=== PATIENT | male | born 1995 | race Caucasian/White ===

== ENCOUNTER 2017-05-29 19:09 | Observation (INO) | payer OTHER ==
[~2017-05-29] VITALS: Ht 188 cm; Wt 59.0 kg
[~2017-05-29 19:09] MED LIST: AZIT200SU PO
[2017-05-29] MEDS ORDERED: FLUO10 (19:52)
[2017-05-29] MEDS ORDERED: QUET25 (19:52)
[2017-05-29 20:43] LABS: BASOPHILS ABSOLUTE AUTO 0.06 K/mm3 (0.00-0.23); BASOPHILS PERCENT AUTO 1 % (0-2); EOSINOPHILS ABSOLUTE AUTO 0.45 K/mm3 (0.00-0.68); EOSINOPHILS PERCENT AUTO 6 % (0-6); Hematocrit 44.6 % (37.0-53.0); Hemoglobin 15.4 g/dL (13.5-17.5); IMMATURE GRAN ABSOLUTE AUTO 0.01 K/mm3 (0.00-0.10); IMMATURE GRAN PERCENT AUTO 0 % (0-1); LYMPHOCYTES PERCENT AUTO 32 % (21-46); MONOCYTES ABSOLUTE AUTO 0.44 K/mm3 (0.16-1.47); MONOCYTES PERCENT AUTO 6 % (4-13); Mean Corpuscular HGB 29.8 pg (26.0-34.0); Mean Corpuscular HGB Conc 34.5 g/dL (31.5-36.5); Mean Corpuscular Volume 86 fL (80-100); NEUTROPHILS ABSOLUTE AUTO 4.39 K/mm3 (1.96-9.15); NEUTROPHILS PERCENT AUTO 56 % (41-73); Platelet Count 189 K/mm3 (150-400); RDW Standard Deviation 38.3 fL (35.1-46.3); Red Blood Cell Count 5.17 M/mm3 (4.30-5.90); White Blood Cell Count 7.85 K/mm3 (4.00-11.30)
[2017-05-29 21:01] LABS: Alanine Aminotransfer (ALT/SGP 16 U/L (12-78); Albumin/Globulin Ratio 1.2 (0.8-1.8); Alk Phos 76 U/L (50-136); Anion Gap 8 mmol/L (6-16); Aspartate Aminotrans (AST/SGOT 9 U/L (12-37); Bilirubin, Total 0.8 mg/dL (0.1-1.0); Blood Urea Nitrogen 20 mg/dL (8-24); Bun/Creatinine Ratio 26.1 (12.0-20.0); CO2, Blood 25 mmol/L (21-32); Calcium, Blood 8.4 mg/dL (8.5-10.1); Chloride, Blood 106 mmol/L (98-108); Creatinine, Blood 0.77 mg/dL (0.60-1.20); Ethanol (Alcohol), Blood, Med <3 mg/dL; Globulin, Blood 3.2 g/dL (2.2-4.0); Glomerular Filtration Rate >60 (60-); Glucose, Blood 101 mg/dL (70-99); Potassium, Blood 3.8 mmol/L (3.5-5.5); Salicylate <1.7 mg/dL (2.8-20.0); Sodium, Blood 139 mmol/L (136-145); Total Protein, Blood 7.2 g/dL (6.4-8.2)
[2017-05-29 21:05] LABS: Acetaminophen, Random < 2.0 ug/mL (10.0-30.0)
[2017-05-29 21:52] LABS: Source, Urine Voided
[2017-05-29 22:02] LABS: Bilirubin, Urine Neg (Neg); Blood, Urine Neg (Neg); Glucose Qualitative, Urine Neg (Neg); Ketones, Urine Neg (Neg); Leukocyte Esterase, Urine Neg (Neg); Nitrite, Urine Neg (Neg); Protein, Urine Neg (Neg); Specific Gravity, Urine 1.015 (1.003-1.022); Urobilinogen, Urine NORM (Normal)
[2017-05-29 22:06] LABS: Appearance, Urine Clear (Clear); Color, Urine Yellow (P-Yellow)
[2017-05-29 22:09] LABS: U Amphetamine Screen Not Detected; U Barbituate Screen Not Detected; U Benzodiazapine Screen Not Detected; U Buprenorphine Screen Not Detected; U Cannabinoids Screen Not Detected; U Cocaine Screen Not Detected; U Methadone Screen Not Detected; U Methamphetamine Screen Not Detected; U Opiates Screen Not Detected; U Oxycodone Screen Not Detected; U Phencyclidine Screen Not Detected; U Propoxyphene Screen Not Detected
== END 2017-05-31 14:30 ==
LOC: ER 19:09 → EOR 19:10
PROVIDERS: Emergency Medicine
DX: T14.91XA Suicide attempt, initial encounter (principal); X83.8XXA Intentional self-harm by other specified means, initial encounter; F20.9 Schizophrenia, unspecified; F32.9 Major depressive disorder, single episode, unspecified; Z88.1 Allergy status to other antibiotic agents; Z79.899 Other long term (current) drug therapy
CPT/HCPCS: 36415; 80053; 81003; 84443; 85025; 99285; G0378; G0480

== ENCOUNTER → 2017-06-23 | Outpatient (CLI) | payer OTHER ==
[~2017-06-23] MED LIST changes: +FLUO10; +QUET25
[2017-06-23 13:26] LABS: BASOPHILS ABSOLUTE AUTO 0.06 K/mm3 (0.00-0.23); BASOPHILS PERCENT AUTO 1 % (0-2); EOSINOPHILS ABSOLUTE AUTO 0.62 K/mm3 (0.00-0.68); EOSINOPHILS PERCENT AUTO 7 % (0-6); Hematocrit 47.3 % (37.0-53.0); Hemoglobin 16.2 g/dL (13.5-17.5); IMMATURE GRAN ABSOLUTE AUTO 0.04 K/mm3 (0.00-0.10); IMMATURE GRAN PERCENT AUTO 1 % (0-1); LYMPHOCYTES ABSOLUTE AUTO 1.84 K/mm3 (0.84-5.20); LYMPHOCYTES PERCENT AUTO 21 % (21-46); MONOCYTES ABSOLUTE AUTO 0.65 K/mm3 (0.16-1.47); MONOCYTES PERCENT AUTO 8 % (4-13); Mean Corpuscular HGB 30.5 pg (26.0-34.0); Mean Corpuscular HGB Conc 34.2 g/dL (31.5-36.5); Mean Corpuscular Volume 89 fL (80-100); Mean Platelet Volume 10.1 fL (9.1-12.4); NEUTROPHILS ABSOLUTE AUTO 5.37 K/mm3 (1.96-9.15); NEUTROPHILS PERCENT AUTO 63 % (41-73); Platelet Count 240 K/mm3 (150-400); RDW Coefficient Variation 12.8 % (11.7-14.2); RDW Standard Deviation 41.3 fL (35.1-46.3); Red Blood Cell Count 5.32 M/mm3 (4.30-5.90); White Blood Cell Count 8.58 K/mm3 (4.00-11.30)
[2017-06-23 13:49] LABS: Alanine Aminotransfer (ALT/SGP 34 U/L (12-78); Albumin, Blood 3.9 g/dL (3.4-5.0); Alk Phos 82 U/L (40-126); Anion Gap 5 mmol/L (6-16); Aspartate Aminotrans (AST/SGOT 17 U/L (12-37); Bilirubin, Total 0.7 mg/dL (0.1-1.0); Blood Urea Nitrogen 11 mg/dL (8-24); Bun/Creatinine Ratio 12.9 (12.0-20.0); CO2, Blood 32 mmol/L (21-32); Calcium, Blood 9.5 mg/dL (8.5-10.1); Chloride, Blood 103 mmol/L (98-108); Creatinine, Blood 0.85 mg/dL (0.60-1.20); Globulin, Blood 3.8 g/dL (2.2-4.0); Glomerular Filtration Rate >60 (60-); Glucose, Blood 92 mg/dL (70-99); Potassium, Blood 3.9 mmol/L (3.5-5.5); Sodium, Blood 140 mmol/L (136-145); Thyroid Stimulating Hormone 1.368 uIU/mL (0.360-4.800); Total Protein, Blood 7.7 g/dL (6.4-8.2)
== END | disposition home or self-care (01) ==
LOC: LAB 13:23
PROVIDERS: Physician Assistant Medical
DX: R53.83 Other fatigue (principal)
CPT/HCPCS: 80053; 84443; 85025

== ENCOUNTER → 2019-05-26 | Outpatient (CLI) | payer OTHER ==
[2019-05-26 18:47] LABS: U Amphetamine Screen Not Detected; U Barbituate Screen Not Detected; U Benzodiazapine Screen Not Detected; U Buprenorphine Screen Not Detected; U Cannabinoids Screen Not Detected; U Cocaine Screen Not Detected; U Methadone Screen Not Detected; U Methamphetamine Screen Not Detected; U Opiates Screen Not Detected; U Oxycodone Screen Not Detected; U Phencyclidine Screen Not Detected; U Propoxyphene Screen Not Detected
== END | disposition home or self-care (01) ==
LOC: LAB SHORT 17:13 → LAB 17:13
PROVIDERS: Registered Nurse Psychiatric/Mental Health
DX: Z51.81 Encounter for therapeutic drug level monitoring (principal); Z79.899 Other long term (current) drug therapy

== ENCOUNTER → 2019-11-27 | Outpatient (CLI) | payer OTHER ==
[2019-11-27 10:18] LABS: BASOPHILS ABSOLUTE AUTO 0.05 K/mm3 (0.00-0.23); BASOPHILS PERCENT AUTO 1 % (0-2); EOSINOPHILS ABSOLUTE AUTO 0.05 K/mm3 (0.00-0.68); EOSINOPHILS PERCENT AUTO 1 % (0-6); Hematocrit 49.5 % (37.0-53.0); Hemoglobin 16.9 g/dL (13.5-17.5); IMMATURE GRAN ABSOLUTE AUTO 0.01 K/mm3 (0.00-0.10); IMMATURE GRAN PERCENT AUTO 0 % (0-1); LYMPHOCYTES ABSOLUTE AUTO 1.35 K/mm3 (0.84-5.20); LYMPHOCYTES PERCENT AUTO 34 % (21-46); MONOCYTES ABSOLUTE AUTO 0.32 K/mm3 (0.16-1.47); MONOCYTES PERCENT AUTO 8 % (4-13); Mean Corpuscular HGB 29.5 pg (26.0-34.0); Mean Corpuscular HGB Conc 34.1 g/dL (31.5-36.5); Mean Corpuscular Volume 87 fL (80-100); Mean Platelet Volume 10.6 fL (9.1-12.4); NEUTROPHILS ABSOLUTE AUTO 2.18 K/mm3 (1.96-9.15); NEUTROPHILS PERCENT AUTO 55 % (41-73); Platelet Count 242 K/mm3 (150-400); RDW Coefficient Variation 12.5 % (11.7-14.2); RDW Standard Deviation 39.6 fL (35.1-46.3); Red Blood Cell Count 5.72 M/mm3 (4.30-5.90); White Blood Cell Count 3.96 K/mm3 (4.00-11.30)
[2019-11-27 10:41] LABS: Alanine Aminotransfer (ALT/SGP 14 U/L (12-78); Albumin, Blood 4.9 g/dL (3.4-5.0); Albumin/Globulin Ratio 1.5 (0.8-1.8); Alk Phos 83 U/L (40-126); Anion Gap 8 mmol/L (6-16); Aspartate Aminotrans (AST/SGOT 11 U/L (12-37); Bilirubin, Total 1.6 mg/dL (0.1-1.0); Blood Urea Nitrogen 19 mg/dL (8-24); Bun/Creatinine Ratio 16.1 (12.0-20.0); CO2, Blood 29 mmol/L (21-32); Calcium, Blood 9.3 mg/dL (8.5-10.1); Chloride, Blood 100 mmol/L (98-108); Creatinine, Blood 1.18 mg/dL (0.60-1.20); Globulin, Blood 3.3 g/dL (2.2-4.0); Glomerular Filtration Rate >60 (60-); Glucose, Blood 92 mg/dL (70-99); Potassium, Blood 4.7 mmol/L (3.5-5.5); Sodium, Blood 137 mmol/L (136-145); Thyroid Stimulating Hormone 0.619 uIU/mL (0.360-4.800); Total Protein, Blood 8.2 g/dL (6.4-8.2)
[2019-11-27 10:42] LABS: Troponin I <0.017 ng/mL (0.000-0.040)
== END | disposition home or self-care (01) ==
LOC: LAB SHORT 10:14 → LAB EV 10:14
PROVIDERS: Physician Assistant Medical
DX: R07.9 Chest pain, unspecified (principal); R53.83 Other fatigue
CPT/HCPCS: 80053; 84443; 84484; 85025

== ENCOUNTER → 2020-02-20 | Outpatient (CLI) | payer OTHER | END | disposition home or self-care (01) | LOC: LAB SHORT 10:46 → LAB EV 10:46 | DX: R50.9 Fever, unspecified (principal); Z20.828 Contact with and (suspected) exposure to other viral communicable diseases | CPT/HCPCS: U0003 ==

== ENCOUNTER 2020-11-27 19:45 | Emergency (ER) | payer OTHER ==
[~2020-11-27] VITALS: Ht 188 cm; Wt 59.0 kg
== END 2020-11-27 20:56 | disposition home or self-care (01) ==
LOC: ER 19:45
DX: S61.213A Laceration without foreign body of left middle finger without damage to nail, initial encounter (principal); Z23 Encounter for immunization; Z88.6 Allergy status to analgesic agent; Z91.010 Allergy to peanuts; Z79.899 Other long term (current) drug therapy; W45.8XXA Other foreign body or object entering through skin, initial encounter
CPT/HCPCS: 12001; 90471; 90714; 99282-25

== ENCOUNTER 2020-12-07 18:03 | Emergency (ER) | payer OTHER ==
[~2020-12-07] VITALS: Ht 190.5 cm; Wt 59.0 kg
== END 2020-12-07 18:14 | disposition home or self-care (01) ==
LOC: ER 18:03
DX: S61.412D Laceration without foreign body of left hand, subsequent encounter (principal); Z91.010 Allergy to peanuts; Z88.8 Allergy status to other drugs, medicaments and biological substances; X58.XXXD Exposure to other specified factors, subsequent encounter

== ENCOUNTER 2021-02-17 20:19 | Observation (INO) | payer OTHER ==
[~2021-02-17] VITALS: Ht 188 cm; Wt 58.1 kg
[2021-02-17 22:25] LABS: Calcium, Ionized (POC) 1.15 mmol/L (1.10-1.46); Chloride (POC) 102 mmol/L (98-108); Creatinine (POC) 0.9 mg/dL (0.8-1.3); Glucose (ISTAT POC) 87 mg/dL (70-99); Hemoglobin (POC) 16.7 g/dL (13.5-17.5); Potassium (POC) 3.9 mmol/L (3.5-5.5); Sodium (POC) 139 mmol/L (135-148); Total CO2 (POC) 25 mmol/L (21-32)
[2021-02-17 23:17] LABS: Acetaminophen, Random <2.0 ug/mL (10.0-30.0); Alanine Aminotransfer (ALT/SGP 17 U/L (12-78); Albumin/Globulin Ratio 1.4 (0.8-1.8); Alk Phos 60 U/L (50-136); Anion Gap 4 mmol/L (6-16); Aspartate Aminotrans (AST/SGOT 14 U/L (12-37); Bilirubin, Total 0.5 mg/dL (0.1-1.0); Blood Urea Nitrogen 15 mg/dL (8-24); Bun/Creatinine Ratio 16.4 (12.0-20.0); CO2, Blood 27 mmol/L (21-32); Calcium, Blood 8.6 mg/dL (8.5-10.1); Chloride, Blood 108 mmol/L (98-108); Creatinine, Blood 0.91 mg/dL (0.60-1.20); Ethanol (Alcohol), Blood, Med <3 mg/dL; Globulin, Blood 2.9 g/dL (2.2-4.0); Glomerular Filtration Rate >60 (60-); Glucose, Blood 84 mg/dL (70-99); Potassium, Blood 3.9 mmol/L (3.5-5.5); Salicylate 2.4 mg/dL (2.8-20.0); Sodium, Blood 139 mmol/L (136-145); Total Protein, Blood 6.9 g/dL (6.4-8.2)
[2021-02-17 23:29] LABS: SARS-Cov-2 (COVID-19) PCR, MMC NEGATIVE (NEGATIVE)
[2021-02-18 00:32] LABS: Source, Urine Clean Catch
[2021-02-18 00:36] LABS: Bilirubin, Urine Neg (Neg); Blood, Urine Neg (Neg); Glucose Qualitative, Urine Neg (Neg); Ketones, Urine Neg (Neg); Leukocyte Esterase, Urine Neg (Neg); Nitrite, Urine Neg (Neg); Protein, Urine Neg (Neg); Specific Gravity, Urine 1.005 (1.003-1.022); Urobilinogen, Urine NORM (Normal)
[2021-02-18 00:38] LABS: Appearance, Urine Clear (Clear); Color, Urine Yellow (P-Yellow)
[2021-02-18 00:48] LABS: U Amphetamine Screen Not Detected; U Barbituate Screen Not Detected; U Benzodiazapine Screen Not Detected; U Buprenorphine Screen Not Detected; U Cannabinoids Screen Not Detected; U Cocaine Screen Not Detected; U Methadone Screen Not Detected; U Methamphetamine Screen Not Detected; U Opiates Screen Not Detected; U Oxycodone Screen Not Detected; U Phencyclidine Screen Not Detected
[2021-02-18 00:49] LABS: U Propoxyphene Screen Not Detected
[2021-02-18 02:10] LABS: BASOPHILS ABSOLUTE AUTO 0.04 K/mm3 (0.00-0.23); BASOPHILS PERCENT AUTO 0 % (0-2); EOSINOPHILS ABSOLUTE AUTO 0.03 K/mm3 (0.00-0.68); EOSINOPHILS PERCENT AUTO 0 % (0-6); Hemoglobin 16.8 g/dL (13.5-17.5); IMMATURE GRAN ABSOLUTE AUTO 0.04 K/mm3 (0.00-0.10); IMMATURE GRAN PERCENT AUTO 0 % (0-1); LYMPHOCYTES ABSOLUTE AUTO 1.07 K/mm3 (0.84-5.20); LYMPHOCYTES PERCENT AUTO 10 % (21-46); MONOCYTES ABSOLUTE AUTO 0.41 K/mm3 (0.16-1.47); MONOCYTES PERCENT AUTO 4 % (4-13); Mean Corpuscular HGB 30.1 pg (26.0-34.0); Mean Corpuscular HGB Conc 33.6 g/dL (31.5-36.5); Mean Corpuscular Volume 89 fL (80-100); Mean Platelet Volume 10.9 fL (9.1-12.4); NEUTROPHILS ABSOLUTE AUTO 9.57 K/mm3 (1.96-9.15); NEUTROPHILS PERCENT AUTO 86 % (41-73); Platelet Count 190 K/mm3 (150-400); RDW Coefficient Variation 12.8 % (11.7-14.2); RDW Standard Deviation 42.4 fL (35.1-46.3); Red Blood Cell Count 5.59 M/mm3 (4.30-5.90); White Blood Cell Count 11.16 K/mm3 (4.00-11.30)
== END 2021-02-20 12:30 ==
LOC: ER 20:19 → EOR 20:20
PROVIDERS: Physician Assistant; ADMIT Emergency Medicine
DX: F25.1 Schizoaffective disorder, depressive type (principal); F84.0 Autistic disorder; T43.592A Poisoning by other antipsychotics and neuroleptics, intentional self-harm, initial encounter; R45.851 Suicidal ideations; F17.210 Nicotine dependence, cigarettes, uncomplicated; Z20.822 Contact with and (suspected) exposure to COVID-19; Z79.899 Other long term (current) drug therapy; Z88.6 Allergy status to analgesic agent; Z88.8 Allergy status to other drugs, medicaments and biological substances; Z91.010 Allergy to peanuts; Z91.02 Food additives allergy status
CPT/HCPCS: 80047; 80053; 81003; 85014; 85025; 96372; 99285; A9270; G0378; G0480; U0004

== ENCOUNTER 2022-03-08 13:48 | Emergency (ER) | payer OTHER ==
[~2022-03-08] VITALS: Ht 188 cm; Wt 61.2 kg
[2022-03-08] MEDS ORDERED: EPIPEN0.3 MG/0.3 IM (16:03)
== END 2022-03-08 16:09 | disposition home or self-care (01) ==
LOC: ER 13:48
DX: T78.1XXA Other adverse food reactions, not elsewhere classified, initial encounter (principal); L29.9 Pruritus, unspecified; X58.XXXA Exposure to other specified factors, initial encounter; Z88.6 Allergy status to analgesic agent; Z88.8 Allergy status to other drugs, medicaments and biological substances; Z91.010 Allergy to peanuts
CPT/HCPCS: 99283; A9270

== ENCOUNTER 2022-10-20 12:20 | Emergency (ER) | payer OTHER ==
[~2022-10-20] VITALS: Ht 188 cm; Wt 64.4 kg
[~2022-10-20 12:20] MED LIST changes: +EPIPEN0.3 MG/0.3 IM
[2022-10-20 13:23] LABS: BASOPHILS ABSOLUTE AUTO 0.06 K/mm3 (0.00-0.23); BASOPHILS PERCENT AUTO 1 % (0-2); EOSINOPHILS PERCENT AUTO 5 % (0-6); Hematocrit 49.2 % (37.0-53.0); Hemoglobin 16.8 g/dL (13.5-17.5); IMMATURE GRAN ABSOLUTE AUTO 0.03 K/mm3 (0.00-0.10); IMMATURE GRAN PERCENT AUTO 0 % (0-1); LYMPHOCYTES ABSOLUTE AUTO 1.63 K/mm3 (0.84-5.20); LYMPHOCYTES PERCENT AUTO 21 % (21-46); MONOCYTES ABSOLUTE AUTO 0.69 K/mm3 (0.16-1.47); MONOCYTES PERCENT AUTO 9 % (4-13); Mean Corpuscular HGB 29.5 pg (26.0-34.0); Mean Corpuscular HGB Conc 34.1 g/dL (31.5-36.5); Mean Corpuscular Volume 87 fL (80-100); Mean Platelet Volume 10.5 fL (9.1-12.4); NEUTROPHILS ABSOLUTE AUTO 5.07 K/mm3 (1.96-9.15); NEUTROPHILS PERCENT AUTO 64 % (41-73); Platelet Count 212 K/mm3 (150-400); RDW Coefficient Variation 13.1 % (11.7-14.2); RDW Standard Deviation 40.8 fL (35.1-46.3); Red Blood Cell Count 5.69 M/mm3 (4.30-5.90); White Blood Cell Count 7.88 K/mm3 (4.00-11.30)
[2022-10-20 13:31] LABS: Albumin, Blood 3.9 g/dL (3.4-5.0); Albumin/Globulin Ratio 1.3 (0.8-1.8); Bilirubin, Total 0.3 mg/dL (0.1-1.0); Bun/Creatinine Ratio 18.3 (12.0-20.0); Calcium, Blood 9.2 mg/dL (8.5-10.1); Creatinine, Blood 0.88 mg/dL (0.60-1.20); Globulin, Blood 2.9 g/dL (2.2-4.0); Total Protein, Blood 6.8 g/dL (6.4-8.2)
[2022-10-20 17:04] LABS: Acetaminophen, Random <2.0 ug/mL (10.0-30.0); Ethanol (Alcohol), Blood, Med <3 mg/dL; Salicylate <1.7 mg/dL (2.8-20.0)
[2022-10-20 18:34] LABS: U Amphetamine Screen Not Detected; U Barbituate Screen Not Detected; U Benzodiazapine Screen Not Detected; U Buprenorphine Screen Not Detected; U Cannabinoids Screen Not Detected; U Cocaine Screen Not Detected; U Methadone Screen Not Detected; U Methamphetamine Screen Not Detected; U Opiates Screen Not Detected; U Oxycodone Screen Not Detected; U Phencyclidine Screen Not Detected; U Propoxyphene Screen Not Detected
[2022-10-20 19:00] VITALS: BP 120/80
== END 2022-10-20 19:15 | disposition home or self-care (01) ==
LOC: ER 12:20
PROVIDERS: Emergency Medicine; Student in an Organized Health Care Education/Training Program
DX: R51.9 Headache, unspecified (principal); R53.83 Other fatigue; F20.9 Schizophrenia, unspecified; Z88.8 Allergy status to other drugs, medicaments and biological substances; Z88.6 Allergy status to analgesic agent; Z91.018 Allergy to other foods
CPT/HCPCS: 80053; 85025; A9270; G0480

== ENCOUNTER → 2025-02-16 | Outpatient (CLI) | payer OTHER | LOC: LAB SHORT 15:30 → LAB 15:30 | DX: R10.13 Epigastric pain (principal) | CPT/HCPCS: 87338 ==